=== PATIENT | female | born 1975 | race Hispanic/Latino ===

== ENCOUNTER 2024-04-08 10:27 | Emergency (ER) | payer BC, MEDICAID ==
[~2024-04-08] VITALS: Ht 162.6 cm; Wt 109.3 kg
[2024-04-08 10:28] VITALS: BP 105/69; PULSE 77; RESP 16; TEMP 97.9
[2024-04-08] MEDS: dexaMETHasone SOD PHOSPHATE 4 MG/ML 1ML VIAL IM ONE (10:49)
[2024-04-08] MEDS: ketOROlac 60 MG VIAL (30MG/ML) IM ONE (10:50)
[2024-04-08] MEDS ORDERED: METH4TAB3 PO (10:58)
[2024-04-08] MEDS ORDERED: IBUP-2077 PO (10:58)
== END 2024-04-08 11:19 | disposition home or self-care (01) ==
LOC: EDH 10:27
DX: G89.29 Other chronic pain (principal); M25.561 Pain in right knee
CPT/HCPCS: 99284; 73562; 96372 ×2; J1100; J1885